=== PATIENT | female | born 1980 | race Caucasian/White ===

== ENCOUNTER 2020-09-03 13:41 | Emergency (ER) | payer MEDICAID, OTHER ==
[~2020-09-03] VITALS: Ht 149.9 cm; Wt 73.8 kg
[2020-09-03 13:59] VITALS: BP 134/47
[2020-09-03] MEDS ORDERED: LIDOcaine 1% W/epiNEPHrine 1:200,000 10ml vial IJ ONE (15:30)
[2020-09-03] MEDS ORDERED: HYDROcodone/acetaminophen 10/325mg tab PO ONE (15:30)
[2020-09-03] MEDS ORDERED: LORazepam 0.5 MG tablet PO PRN (15:30)
[2020-09-03] MEDS ORDERED: IBUP-1984 PO (16:29)
[2020-09-03] MEDS ORDERED: DOXY100C77 PO (16:29)
== END 2020-09-03 17:11 | disposition home or self-care (01) ==
LOC: ER 13:42
DX: N75.0 Cyst of Bartholin's gland (principal); R10.2 Pelvic and perineal pain; Z98.51 Tubal ligation status; Z98.890 Other specified postprocedural states; Z79.2 Long term (current) use of antibiotics; Z79.899 Other long term (current) drug therapy
CPT/HCPCS: 56405; 56420; 99283; 99284

== ENCOUNTER 2021-09-25 19:16 | Emergency (ER) | payer MEDICAID ==
[~2021-09-25] VITALS: Ht 149.9 cm; Wt 77.3 kg
[2021-09-25 20:07] LABS: URINE HCG NEGATIVE (NEG)
[2021-09-25 20:12] LABS: BASOPHILS % (AUTO) 0.5 % (0-1); EOSINOPHILS # (AUTO) 0.1 X10'3 (0-0.9); EOSINOPHILS % (AUTO) 1.5 % (0-6); HEMOGLOBIN 12.8 g/dl (12.0-16.0); LYMPHOCYTES # (AUTO) 2.1 X10'3 (1.1-4.8); LYMPHOCYTES % (AUTO) 26.6 % (21-51); MEAN CORPUSCULAR HEMOGLOBIN 30.1 PG (27.0-31.0); MEAN CORPUSCULAR HGB CONC 34.6 g/dL (33.0-36.5); MEAN CORPUSCULAR VOLUME 86.9 FL (78-98); MONOCYTES # (AUTO) 0.7 X10'3 (0-0.9); MONOCYTES % (AUTO) 8.4 % (2-12); NEUTROPHILS # (AUTO) 5.1 X10'3 (1.8-7.7); PLATELET COUNT 414 X10'3 (140-440); RED BLOOD COUNT 4.25 X10'6 (4.20-5.60); RED CELL DISTRIBUTION WIDTH 13.5 % (11.5-14.5)
[2021-09-25 20:16] LABS: CLARITY,URINE CLEAR (Clear); COLOR,URINE YELLOW (Yellow); GLUCOSE, URINE NEGATIVE (Neg); KETONES,URINE NEGATIVE (Neg); LEUKOCYTE ESTERASE ,URINE NEGATIVE (Neg); NITRITES, URINE NEGATIVE (Neg); OCCULT BLOOD,URINE NEGATIVE (Neg); PROTEIN,URINE NEGATIVE (Neg); UA COLLECTION TYPE VOIDED; UROBILINOGEN,URINE 0.2 E.U/dL (0.2-1.0)
[2021-09-25 20:20] LABS: ALANINE AMINOTRANSFERASE 21 U/L (12-78); ALBUMIN 4.6 G/DL (3.4-5.0); ALBUMIN/GLOBULIN RATIO 1.3 (1.1-1.5); ALKALINE PHOSPHATASE 61 IU/L (46-116); ANION GAP 9 (8-16); ASPARTATE AMINO TRANSFERASE 16 U/L (10-37); BILIRUBIN,TOTAL 0.7 MG/DL (0.1-1.0); BLOOD UREA NITROGEN 7 MG/DL (7-18); BUN/CREATININE RATIO 8.2 (6.6-38.0); CALCIUM 9.3 MG/DL (8.5-10.1); CHLORIDE 103 MMOL/L (99-107); CREATININE 0.85 MG/DL (0.40-0.90); GLUCOSE 122 MG/DL (70-104); LIPASE 63 U/L (73-393); POTASSIUM 3.7 MMOL/L (3.5-5.1); SODIUM 138 MMOL/L (135-145); TOTAL CARBON DIOXIDE 25.7 MMOL/L (24-32); TOTAL PROTEIN 8.1 G/DL (6.4-8.2); eGFR 73 ML/MIN
[2021-09-25] MEDS ORDERED: morphine 4 MG/ML inj SYRINge IV ONE (22:15)
[2021-09-25] MEDS ORDERED: ondansetron/PF 4mg/2ml inj IV ONE (22:15)
[2021-09-25] MEDS ORDERED: iohexol 300mg/ml 100ml inj. ONE (22:15)
[2021-09-25] MEDS ORDERED: acetaminophen 325mg tablet PO ONE (23:10)
[2021-09-25] MEDS ORDERED: ketorolac trometh. 30mg/ml inj. IV ONE (23:10)
[2021-09-25 23:59] LABS: URINE AMPHETAMINE SCREEN NEGATIVE (Neg); URINE BARBITUATE SCREEN NEGATIVE (Neg); URINE BENZODIAZEPINES SCREEN NEGATIVE (Neg); URINE CANNABINOID SCREEN POSITIVE (Neg); URINE COCAINE SCREEN NEGATIVE (Neg); URINE METHADONE SCREEN NEGATIVE (Neg); URINE OPIATE SCREEN NEGATIVE (Neg); URINE PHENCYCLIDINE SCREEN NEGATIVE (Neg)
[2021-09-26] MEDS ORDERED: ONDA8TAB13 PO (00:55)
[2021-09-26 01:12] VITALS: BP 163/62
== END 2021-09-26 01:14 | disposition home or self-care (01) ==
LOC: ER 19:17
DX: N83.202 Unspecified ovarian cyst, left side (principal); R10.32 Left lower quadrant pain; K92.1 Melena; Z98.51 Tubal ligation status; Z98.890 Other specified postprocedural states; Z79.899 Other long term (current) drug therapy
CPT/HCPCS: 36415; 74177; 76830; 76856; 80053; 80305; 81003; 81025; 83690; 85025; 93976; 96374; 96375; 99285; J1885; J2270; J2405; Q9967

== ENCOUNTER 2022-01-15 19:52 | Emergency (ER) | payer MEDICAID ==
[~2022-01-15] VITALS: Ht 149.9 cm; Wt 79.5 kg
[~2022-01-15 19:52] MED LIST: ONDA8TAB13 PO
[2022-01-15 20:30] LABS: BASOPHILS # (AUTO) 0.1 X10'3 (0-0.2); BASOPHILS % (AUTO) 0.9 % (0-1); EOSINOPHILS # (AUTO) 0.2 X10'3 (0-0.9); EOSINOPHILS % (AUTO) 3.1 % (0-6); HEMOGLOBIN 12.4 g/dl (12.0-16.0); LYMPHOCYTES # (AUTO) 3.1 X10'3 (1.1-4.8); LYMPHOCYTES % (AUTO) 42.8 % (21-51); MEAN CORPUSCULAR HEMOGLOBIN 29.5 PG (27.0-31.0); MEAN CORPUSCULAR HGB CONC 34.5 g/dL (33.0-36.5); MEAN CORPUSCULAR VOLUME 85.7 FL (78-98); MEAN PLATELET VOLUME 7.1 FL (7.4-10.4); MONOCYTES # (AUTO) 0.6 X10'3 (0-0.9); MONOCYTES % (AUTO) 8.5 % (2-12); NEUTROPHILS # (AUTO) 3.2 X10'3 (1.8-7.7); NEUTROPHILS % (AUTO) 44.7 % (42-75); PLATELET COUNT 432 X10'3 (140-440); RED BLOOD COUNT 4.21 X10'6 (4.20-5.60); RED CELL DISTRIBUTION WIDTH 14.8 % (11.5-14.5); WHITE BLOOD COUNT 7.3 X10'3 (4.5-11.0)
[2022-01-15 20:34] LABS: ALANINE AMINOTRANSFERASE 24 U/L (12-78); ALBUMIN 4.3 G/DL (3.4-5.0); ALBUMIN/GLOBULIN RATIO 1.2 (1.1-1.5); ALKALINE PHOSPHATASE 62 IU/L (46-116); ANION GAP 9 (8-16); ASPARTATE AMINO TRANSFERASE 14 U/L (10-37); BILIRUBIN,TOTAL 0.3 MG/DL (0.1-1.0); BLOOD UREA NITROGEN 13 MG/DL (7-18); BUN/CREATININE RATIO 13.8 (6.6-38.0); CALCIUM 9.1 MG/DL (8.5-10.1); CHLORIDE 100 MMOL/L (99-107); CREATININE 0.94 MG/DL (0.40-0.90); GLUCOSE 117 MG/DL (70-104); POTASSIUM 3.4 MMOL/L (3.5-5.1); SODIUM 138 MMOL/L (135-145); TOTAL CARBON DIOXIDE 29.1 MMOL/L (24-32); TOTAL PROTEIN 7.9 G/DL (6.4-8.2); eGFR 65 ML/MIN
[2022-01-15 22:30] VITALS: BP 129/72
== END 2022-01-15 22:35 | disposition home or self-care (01) ==
LOC: ER 19:53
DX: R07.9 Chest pain, unspecified (principal); R51.9 Headache, unspecified; I10 Essential (primary) hypertension; Z79.899 Other long term (current) drug therapy; Z98.890 Other specified postprocedural states
CPT/HCPCS: 36415; 70450; 71045; 80053; 83880; 84484; 85025; 93005; 99285

== ENCOUNTER 2022-04-01 09:06 | Emergency (ER) | payer MEDICAID ==
[~2022-04-01] VITALS: Ht 149.9 cm; Wt 79.1 kg
[2022-04-01 09:09] VITALS: BP 156/81
[2022-04-01] MEDS ORDERED: proparacaine 0.5% ophthalmic drops 15ml LEFTEYE ONE (09:50)
[2022-04-01] MEDS ORDERED: erythromycin ophthalmic ointment 1gm tube LEFTEYE ONE (09:50)
[2022-04-01] MEDS ORDERED: ERYT1OIN6 LEFTEYE (10:14)
== END 2022-04-01 10:31 | disposition home or self-care (01) ==
LOC: ER 09:07
DX: S05.02XA Injury of conjunctiva and corneal abrasion without foreign body, left eye, initial encounter (principal); I10 Essential (primary) hypertension; Z98.890 Other specified postprocedural states; Z79.899 Other long term (current) drug therapy; X58.XXXA Exposure to other specified factors, initial encounter; Y93.89 Activity, other specified; Y92.89 Other specified places as the place of occurrence of the external cause; Y99.8 Other external cause status
CPT/HCPCS: 99283

== ENCOUNTER 2023-08-15 12:25 | Emergency (ER) | payer MEDICAID ==
[~2023-08-15] VITALS: Ht 149.9 cm; Wt 69.0 kg
[2023-08-15 12:42] VITALS: TEMP 98.3
[2023-08-15 13:20] LABS: BILIRUBIN,URINE SMALL (Neg); CLARITY,URINE CLOUDY (Clear); COLOR,URINE YELLOW (Yellow); GLUCOSE, URINE NEGATIVE (Neg); KETONES,URINE 15 mg/dl (Neg); LEUKOCYTE ESTERASE ,URINE NEGATIVE (Neg); NITRITES, URINE NEGATIVE (Neg); OCCULT BLOOD,URINE MODERATE (Neg); PH,URINE 5.5 (4.8-8.0); PROTEIN,URINE 100 mg/dl (Neg); URINE HCG NEGATIVE (NEG); UROBILINOGEN,URINE 0.2 E.U/dL (0.2-1.0)
[2023-08-15 13:27] LABS: UA COLLECTION TYPE CLN CATCH MIDSTREAM
[2023-08-15 13:28] LABS: SQUAMOUS EPITHELIAL CELL,UR MANY /LPF (FEW)
[2023-08-15 13:29] LABS: BACTERIA,URINE FEW /HPF (Neg); RBC,URINE 0-2 /HPF (0-2); WBC,URINE 0-4 /HPF (0-4)
[2023-08-15 13:36] LABS: BASOPHILS % (AUTO) 0.2 % (0-1); EOSINOPHILS % (AUTO) 0.1 % (0-6); HEMATOCRIT 38.5 % (35.0-45.0); HEMOGLOBIN 13.4 g/dl (12.0-16.0); LYMPHOCYTES # (AUTO) 0.7 X10'3 (1.1-4.8); LYMPHOCYTES % (AUTO) 10.4 % (21-51); MEAN CORPUSCULAR HEMOGLOBIN 28.6 PG (27.0-31.0); MEAN CORPUSCULAR HGB CONC 34.8 g/dL (33.0-36.5); MEAN CORPUSCULAR VOLUME 82.1 FL (78-98); MEAN PLATELET VOLUME 6.7 FL (7.4-10.4); MONOCYTES # (AUTO) 0.6 X10'3 (0-0.9); NEUTROPHILS # (AUTO) 5.6 X10'3 (1.8-7.7); NEUTROPHILS % (AUTO) 80.3 % (42-75); PLATELET COUNT 338 X10'3 (140-440); RED BLOOD COUNT 4.68 X10'6 (4.20-5.60); RED CELL DISTRIBUTION WIDTH 15.6 % (11.5-14.5)
[2023-08-15 13:56] LABS: ALANINE AMINOTRANSFERASE 21 U/L (12-78); ALBUMIN 4.5 G/DL (3.4-5.0); ALBUMIN/GLOBULIN RATIO 1.2 (1.1-1.5); ALKALINE PHOSPHATASE 60 IU/L (46-116); ANION GAP 14 (8-16); ASPARTATE AMINO TRANSFERASE 18 U/L (10-37); BILIRUBIN,TOTAL 0.5 MG/DL (0.1-1.0); BLOOD UREA NITROGEN 17 MG/DL (7-18); BUN/CREATININE RATIO 13.7 (10.0-20.0); CALCIUM 9.6 MG/DL (8.5-10.1); CHLORIDE 88 MMOL/L (99-107); CREATININE 1.24 MG/DL (0.40-0.90); GLUCOSE 126 MG/DL (70-104); LIPASE 31 U/L (16-77); POTASSIUM 3.2 MMOL/L (3.5-5.1); SODIUM 127 MMOL/L (135-145); TOTAL CARBON DIOXIDE 25.5 MMOL/L (24-32); TOTAL PROTEIN 8.4 G/DL (6.4-8.2); eCRCL 39 ML/MIN; eGFR 47 ML/MIN
[2023-08-15 14:39] LABS: HCG SERUM QL NEGATIVE
[2023-08-15] MEDS: dicyclomine 10 MG capsule PO ONE (19:48)
[2023-08-15] MEDS: metoclopramide 5 mg/ml inj IM ONE (19:48)
[2023-08-15] MEDS: diphenhydrAMINE 50 mg/ml inj IM ONE (19:49)
[2023-08-15] MEDS: proCHLORperazine 10 MG/2 ml inj IV ONE (20:01)
[2023-08-15] MEDS: ringers solution, lacted 1,000 ML IV ONE ×2 (20:02→20:48)
[2023-08-15] MEDS: diphenhydrAMINE 50 mg/ml inj IV ONE (20:02)
[2023-08-15] MEDS: potassium Cl 20 mEq SR tablet PO ONE (20:09)
[2023-08-15] MEDS ORDERED: ONDA4TAB12 PO (21:37)
[2023-08-15 21:53] VITALS: BP 141/61; PULSE 80; RESP 14; O2SAT 94
== END 2023-08-15 21:56 | disposition home or self-care (01) ==
LOC: ER 12:25
DX: A08.4 Viral intestinal infection, unspecified (principal); E87.6 Hypokalemia; E87.1 Hypo-osmolality and hyponatremia
CPT/HCPCS: 36415; 71045; 80053; 81001; 81025; 83690; 84484; 84703; 85025; 93005; 96361; 96374; 96375; 99285; J0780; J1200; J7120

== ENCOUNTER 2023-11-08 10:25 | Emergency (ER) | payer MEDICAID ==
[~2023-11-08] VITALS: Ht 149.9 cm; Wt 75.0 kg
[~2023-11-08 10:25] MED LIST changes: +ONDA4TAB12 PO
[2023-11-08 11:18] VITALS: BP 150/54; PULSE 64; RESP 18; TEMP 97.8; O2SAT 98
[2023-11-08] MEDS: ibuprofen tablet 400 MG TABLET PO ONE (13:21)
[2023-11-08] MEDS ORDERED: IBUP-862 PO (14:00)
[2023-11-08] MEDS ORDERED: HYDR-3965 PO (14:00)
== END 2023-11-08 14:15 | disposition home or self-care (01) ==
LOC: ER 10:25
DX: M79.671 Pain in right foot (principal); I10 Essential (primary) hypertension; Z79.899 Other long term (current) drug therapy; Z98.890 Other specified postprocedural states; Z98.51 Tubal ligation status
CPT/HCPCS: 73630; 99283